=== PATIENT | male | born 1950 ===

== ENCOUNTER 2018-12-01 16:00 | Emergency (ER) | payer MEDICARE, OTHER ==
[2018-12-01 16:13] VITALS: BP 153/96
--- NOTE | 2018-12-01 16:28 | ED ---
Head Injury - HPI Summary HPI Summary: 68 yr old male with the complaint of head and neck pain. The patient was knocked over by a cow in his barn. He hit his right occipital area on concrete curb. He saw stars. He felt a little off balance after hitting his head. He has significant Swelling right side of occipital skull with tenderness. complains of upper neck pain as well. No LOC. He felt disoriented as well since the head trauma. - History Of Current Complaint Chief Complaint: UCHeadInjury Stated Complaint: HEAD INJURY Time Seen by Provider: 12/01/18 16:13 Pain Intensity: 3 - Allergies/Home Medications Allergies/Adverse Reactions: Allergies Allergy/AdvReac Type Severity Reaction Status Date / Time No Known Allergies Allergy Verified 12/01/18 16:05 Home Medications: Home Medications Aspirin [Aspir-Low] 81 mg PO BEDTIME 12/01/18 [History Confirmed 12/01/18] Irbesartan 75 mg PO BEDTIME 12/01/18 [History Confirmed 12/01/18] Penicillin VK TAB* [Penicillin VK 250 mg Tab*] 500 mg PO QID 12/01/18 [History Confirmed 12/01/18] PMH/Surg Hx/FS Hx/Imm Hx Cardiovascular History: Reports: Hx Hypertension - Surgical History Surgery Procedure, Year, and Place: BILATERAL TOTAL KNEE Infectious Disease History: No Infectious Disease History: Denies: Traveled Outside the [place] in Last 30 Days - Family History Known Family History: Positive: None - Social History Occupation: Retired Lives: With Family Alcohol Use: Rare Substance Use Type: Reports: None Smoking Status (MU): Former Smoker Review of Systems Constitutional: Negative Negative: Photophobia, Blurred Vision Negative: Epistaxis, Nasal Discharge Positive: Headache All Other Systems Reviewed And Are Negative: Yes Physical Exam Triage Information Reviewed: Yes Vital Signs On Initial Exam: Initial Vitals Temp Pulse Resp BP Pulse Ox 99.3 F 71 16 153/96 100 12/01/18 16:06 12/01/18 16:06 12/01/18 16:06 12/01/18 16:06 12/01/18 16:06 Vital Signs Reviewed: Yes Appearance: Positive: Well-Appearing, No Pain Distress Skin: Positive: Warm, Skin Color Reflects Adequate Perfusion Head/Face: Positive: Other - tender to palpate right occipital skull with obvious swelling.. Negative: TMJ Tenderness Eyes: Positive: EOMI, NISHI ENT: Positive: Pharynx normal, TMs normal. Negative: Nasal drainage Neck: Positive: Other: - tender upper c spine Respiratory/Lung Sounds: Positive: Clear to Auscultation, Breath Sounds Present Cardiovascular: Positive: RRR. Negative: Murmur Abdomen Description: Positive: Nontender. Negative: Distended Musculoskeletal: Positive: Strength/ROM Intact Neurological: Positive: Sensory/Motor Intact, Alert, Oriented to Person Place, Time, CN Intact II-III, Normal Gait, Speech Normal Psychiatric: Positive: Normal - Anna Coma Scale Best Eye Response: 4 - Spontaneous Best Motor Response: 6 - Obeys Commands Best Verbal Response: 5 - Oriented Coma Scale Total: 15 Diagnostics - Vital Signs Vital Signs Temp Pulse Resp BP Pulse Ox 12/01/18 16:06 99.3 F 71 16 153/96 100 - Laboratory Lab Statement: Any lab studies that have been ordered have been reviewed, and results considered in the medical decision making process. - CT ct brain, cspine CT Interpretation Completed By: Radiologist - Right side scalp hematoma right occipital area without skull fracture. C spine with DJD. Head Injury Course/Dx Course Of Treatment: 68 yr old male with significant swelling occiptal skull on right. Ct ordered to be sure no skull fracture. Tender c spine CT ordered. Ct neg for skull fracture. - Diagnoses Provider Diagnoses: Hematoma of occipital surface of head, Hypertension Discharge - Sign-Out/Discharge Documenting (check all that apply): Patient Departure All imaging exams completed and their final reports reviewed: Yes - Discharge Plan Condition: Good Disposition: HOME Patient Education Materials: Hematoma (ED), Contusion in Adults (ED), Cervical Strain (ED), Hypertension (ED) Referrals: Libertad Maria PA [Primary Care Provider] - 2 Days - Billing Disposition and Condition Condition: GOOD Disposition: Home
== END 2018-12-01 17:32 | disposition home or self-care (01) ==
LOC: UCCORT 16:00
DX: S00.03XA Contusion of scalp, initial encounter (principal); I10 Essential (primary) hypertension; Z87.891 Personal history of nicotine dependence; Z79.82 Long term (current) use of aspirin; W55.22XA Struck by cow, initial encounter; Y92.71 Barn as the place of occurrence of the external cause
CPT/HCPCS: 70450; 72125; 99211; G0463

== ENCOUNTER 2019-08-27 14:59 | Emergency (ER) | payer MEDICARE ==
[2019-08-27 15:07] VITALS: BP 146/93
--- NOTE | 2019-08-27 15:13 | UC ---
Cardiac HPI - HPI Summary HPI Summary: 69 yo male presents, accompanied by , with chest pain. Pt tells me that this morning around 0700 he noticed some sharp left sided chest pain that lasted a few minutes before resolving spontaneously. Since that time he has had several instances of this today and seems to be getting worse throughout the day. notes that pt seemed to be wheezing more and slightly short of breath today. Pt states he felt fine yesterday. He has had symptoms like this in the past, but never this bad. He states only PMH is HTN for which he takes norvasc. Fam hx of [place] in father. Denies headache, dizziness, neck pain, abdominal pain, n /v, back pain. - History of Current Complaint Chief Complaint: UCChestPain Stated Complaint: CHEST PAIN Time Seen by Provider: 08/27/19 15:13 Hx Obtained From: Patient Onset/Duration: Sudden Onset Initial Severity: Moderate Current Severity: Severe Pain Intensity: 8 - Allergy/Home Medications Allergies/Adverse Reactions: Allergies Allergy/AdvReac Type Severity Reaction Status Date / Time No Known Allergies Allergy Verified 08/27/19 15:07 Home Medications: Home Medications amLODIPine TAB* [Norvasc 5 mg TAB*] 5 mg PO DAILY 08/27/19 [History Confirmed ] PMH/Surg Hx/FS Hx/Imm Hx Cardiovascular History: Hypertension - Surgical History Surgical History: Yes Surgery Procedure, Year, and Place: BILATERAL TOTAL KNEE - Family History Known Family History: Positive: Cardiac Disease - Social History Occupation: Works From/At Home Lives: With Family Alcohol Use: Rare Substance Use Type: None Smoking Status (MU): Former Smoker When Did the Patient Quit Smoking/Using Tobacco: 1990 Review of Systems All Other Systems Reviewed And Are Negative: No Constitutional: Positive: Negative Skin: Positive: Negative Eyes: Positive: Negative ENT: Positive: Negative Respiratory: Positive: Negative Cardiovascular: Positive: Chest Pain Gastrointestinal: Positive: Negative Genitourinary: Positive: Negative Motor: Positive: Negative Neurovascular: Positive: Negative Musculoskeletal: Positive: Negative Neurological: Positive: Negative Psychological: Positive: Negative Physical Exam - Summary Physical Exam Summary: GENERAL: NAD. WDWN. No pain distress. SKIN: No rashes, sores, or open wounds. HEENT: Head: AT/NC Eyes: PERRLA. EOM intact. Ears: Hearing grossly normal. Nose: Nasal mucosa pink and moist. Throat: Posterior oropharynx without exudates, erythema, or tonsillar enlargement. Uvula midline. NECK: Supple. Nontender. No lymphadenopathy. CHEST: CTAB. No r/r/w. No accessory muscle use. Breathing comfortably and in no distress. CV: RRR. Pulses intact. Brisk cap refill. ABDOMEN: Soft. NTTP. No distention or guarding. Bowel sounds present NEURO: Alert. PSYCH: Age appropriate behavior. Triage Information Reviewed: Yes Vital Signs: Initial Vital Signs Temp 97.6 F 08/27/19 15:00 Pulse 73 08/27/19 15:00 Resp 16 08/27/19 15:00 BP 146/93 08/27/19 15:00 Pulse Ox 97 08/27/19 15:00 Vital Signs Reviewed: Yes Diagnostics - EKG EKG Comparison: Other Summary of EKG Findings: 73 bpm NSR. No acute changes as read by Dr. Mccullough - Assessment/Plan Course Of Treatment: EKG as above. Given age, symptoms, and family hx. I recommended pt be further evaluated in the ED. He declined ambulance transfer and will drive him to [facility]. I called and gave report to Don in the ED. Pt was given 324 chewable ASA prior to his departure from the . - Clinical Impression Provider Diagnosis: Chest pain Discharge ED - Sign-Out/Discharge Documenting (check all that apply): Patient Departure All imaging exams completed and their final reports reviewed: No Studies - Discharge Plan Condition: Stable Disposition: HOME-RECOMMEND TO ED Referrals: Libertad Maria PA [Primary Care Provider] - Additional Instructions: Please go to the ER for further evaluation of your chest pain - Billing Disposition and Condition Condition: STABLE Disposition: Home-Recommend to ED
[2019-08-27] MEDS ORDERED: Aspirin 81 mg CHEW TAB* 81 MG TAB.CHEW PO ONE (15:20)
== END 2019-08-27 15:29 | disposition home health service (06) ==
LOC: UCCORT 14:59
DX: R07.9 Chest pain, unspecified (principal); I10 Essential (primary) hypertension; Z87.891 Personal history of nicotine dependence; Z79.899 Other long term (current) drug therapy
CPT/HCPCS: 93005; 99212; A9270-GY; G0463